=== PATIENT | female | born 1940 | race Caucasian/White ===

== ENCOUNTER 2019-03-31 03:39 | Observation (INO) | payer MEDICARE, OTHER ==
[~2019-03-31] VITALS: Ht 152.4 cm; Wt 54.2 kg
[2019-03-31] MEDS ORDERED: PROPOFOL 10 MG/ML, 20ML ONE (04:17)
--- NOTE | 2019-03-31 04:30 | NUR ---
SEE PROCEDURAL SEDATION SHEET.
[2019-03-31] MEDS ORDERED: MORPHINE SULFATE 4 MG/ML, 1ML ONE (04:56)
[2019-03-31] MEDS ORDERED: MORPHINE SULFATE 4 MG/ML, 1ML IVPush ONE (05:00)
--- NOTE | 2019-03-31 05:20 | NUR ---
PT TOLERATED PROCEDURE WELL BUT RIGHT HIP REMAINS OUT OF PLACE. ORTHO HAS BEEN CALLED PT WITH VSS.
[2019-03-31 05:48] LABS: BASOPHILS # (AUTO) 0.02 x10^3/uL (0-0.1); BASOPHILS % (AUTO) 0 % (0-1); EOSINOPHILS # (AUTO) 0.23 x10^3/uL (0-0.4); EOSINOPHILS % (AUTO) 4 % (1-7); LYMPHOCYTES # (AUTO) 0.99 x10^3/uL (1-3.4); LYMPHOCYTES % (AUTO) 16 % (22-44); MD NO; MEAN CORPUSCULAR HEMOGLOBIN 30.5 pg (27.0-34.8); MEAN CORPUSCULAR HGB CONC 32.5 g/dL (32.4-35.8); MEAN PLATELET VOLUME 9.1 fL (7.4-10.4); MONOCYTES # (AUTO) 0.54 x10^3/uL (0.2-0.8); MONOCYTES % (AUTO) 9 % (2-9); NEUTROPHILS # (AUTO) 4.44 x10^3/uL (1.8-6.8); NEUTROPHILS % (AUTO) 71 % (42-75); PLATELET COUNT 195 x10^3/uL (130-400); RED BLOOD COUNT 4.81 x10^6/uL (3.82-5.3); RED CELL DISTRIBUTION WIDTH 14.8 % (9.6-15.2)
[2019-03-31 05:57] LABS: ALBUMIN 2.9 g/dL (3.4-5.0); ANION GAP 6 mmol/L (5-15); CHLORIDE 113 mmol/L (98-107)
[2019-03-31] MEDS ORDERED: MORPHINE SULFATE 4 MG/ML, 1ML IVPush PRN (06:00)
[2019-03-31] MEDS ORDERED: ONDANSETRON 2MG/ML, 2ML IVPush PRN (06:00)
[2019-03-31] MEDS ORDERED: SODIUM CHLORIDE 0.9% 1,000 ML IV SCH (06:00)
--- NOTE | 2019-03-31 06:03 | NUR ---
PUREWICK PLACED AND PT INCOURAGED TO URINATE. BUT DUE TO ALOC PT NOT WILLING TO PEE AT THIS TIME.
[2019-03-31 06:07] LABS: ALANINE AMINOTRANSFERASE 20 U/L (12-78); ALKALINE PHOSPHATASE 71 U/L (45-117); BILIRUBIN,TOTAL 1.1 mg/dL (0.2-1.0); CALCIUM 7.8 mg/dL (8.5-10.1); CREATININE 0.75 mg/dL (0.55-1.02); TOTAL PROTEIN 6.3 g/dL (6.4-8.2)
--- NOTE | 2019-03-31 06:26 | NUR ---
REPORT CALLED PT READY TO GO.
[2019-03-31 06:44] VITALS: BP 132/75
[2019-03-31] MEDS ORDERED: PROPOFOL 50 ML ONE (10:49)
[2019-03-31] MEDS ORDERED: ONDANSETRON ODT 8 MG PO PRN (11:30)
[2019-03-31] MEDS ORDERED: EPHEDRINE 50 MG/ML, 1ML IVPush PRN (11:30)
[2019-03-31] MEDS ORDERED: ACETAMINOPHEN 325 MG TABLET PO PRN (11:30)
[2019-03-31] MEDS ORDERED: OXYcodone 5 MG/5 ML ORAL.SOL UDC PO PRN (11:30)
[2019-03-31] MEDS ORDERED: FENTANYL PF 100 MCG/2ML IV PRN (11:30)
[2019-03-31] MEDS ORDERED: EPHEDRINE 50 MG/ML, 1ML IM PRN (11:30)
[2019-03-31] MEDS ORDERED: ONDANSETRON 2MG/ML, 2ML IV PRN (11:30)
[2019-03-31] MEDS ORDERED: MIDAZOLAM 1 MG/ML, 2ML IV PRN (11:30)
[2019-03-31 12:40] VITALS: BP 129/76
[2019-03-31 20:51] VITALS: BP 135/59
[2019-04-01 00:35] VITALS: BP 158/69
[2019-04-01 05:10] VITALS: BP 143/79
[2019-04-01 07:52] VITALS: BP 149/65
[2019-04-01 14:45] VITALS: BP 126/77
== END 2019-04-01 15:45 | disposition home or self-care (01) ==
LOC: ED 06:30 → 4NE 06:55 → INTOOBSV 06:55
PROVIDERS: ADMIT Orthopaedic Surgery; ATTEND Orthopaedic Surgery
DX: T84.020A Dislocation of internal right hip prosthesis, initial encounter (principal); S79.911A Unspecified injury of right hip, initial encounter; I10 Essential (primary) hypertension; F03.90 Unspecified dementia, unspecified severity, without behavioral disturbance, psychotic disturbance, mood disturbance, and anxiety; E78.00 Pure hypercholesterolemia, unspecified; W01.0XXA Fall on same level from slipping, tripping and stumbling without subsequent striking against object, initial encounter; Y93.89 Activity, other specified; Y92.89 Other specified places as the place of occurrence of the external cause
CPT/HCPCS: 27250; 36415; 72170; 73501; 76000; 80053; 85025; 93005; 96374; 96376; 97162; 99152; 99284; G0378; J2270; J2704; J7030

== ENCOUNTER 2019-11-15 08:42 | Observation (INO) | payer MEDICARE, OTHER ==
[~2019-11-15] VITALS: Ht 152.4 cm; Wt 75.0 kg
[2019-11-15] MEDS ORDERED: SODIUM CHLORIDE FLUSH 10ML SYR IVF ONE (09:00)
[2019-11-15] MEDS ORDERED: PLEASE ENTER HEIGHT AND WEIGHT MC SCH (09:00)
[2019-11-15] MEDS ORDERED: FURO20TA3 PO (09:02)
[2019-11-15] MEDS ORDERED: SPIR50TA4 PO (09:03)
[2019-11-15] MEDS ORDERED: SIMV10TA18 PO (09:03)
--- NOTE | 2019-11-15 09:07 | NUR ---
PATIENT BIB [facility] AFTER HAVING A FALL AT HOME AND SPOUSE WAS UNABLE TO GET PATIENT UP OFF THE FLOOR. PATIENT INJURED RIGHT HIP AND KNEE, AND HAS HX OF RIGHT HIP SURGERY. PATIENT GIVEN 200 [address] E[place]TE TO THE HOSPITAL, WITH SOME PAIN RELIEF. SPOUSE AT BEDSIDE. PATIENT IS A&OX3, SHE CANNOT REMEMBER WHY SHE IS AT THE HOSPITAL. PATIENT ON 2 LPM NC. PATIENT DENIES PAIN AT THIS TIME.
--- NOTE | 2019-11-15 09:08 | NUR ---
PATIENT TO XRAY.
[2019-11-15] MEDS ORDERED: PROPOFOL 10 MG/ML, 20ML ONE (09:55)
[2019-11-15] MEDS ORDERED: KETAMINE 10 MG/ML, 20ML ONE (09:55)
[2019-11-15] MEDS ORDERED: PROPOFOL 10 MG/ML, 20ML IVPush ONE (10:00)
[2019-11-15] MEDS ORDERED: KETAMINE 10 MG/ML, 20ML IV ONE (10:00)
--- NOTE | 2019-11-15 10:08 | NUR ---
PT MOVED TO TRAUMA ROOM 2 FOR CLOSED REDUCTION OF RIGHT HIP. IS WAITING IN THE CAFE. EDUCATION PROVIDED, AND CONSENTS SIGNED. MONITORING IN PLACE FOR PROCEDURAL SEDATION. PLEASE REFER TO PAPER CHARTING FOR SEDATION MONITORING AND PROGRESS. MYSELF AND KASSIDY (RN) WILL BE ASSISTING WITH REDUCTION/SEDATION.
--- NOTE | 2019-11-15 10:43 | NUR ---
unsuccessful reduction of right hip. pt tolerated sedation well. please refer to paper charts for vs and sedation scale.
--- NOTE | 2019-11-15 11:30 | NUR ---
Patient is resting comfortably in rtorrance, vital signs within normal limits. No further needs at this time.
--- NOTE | 2019-11-15 12:45 | NUR ---
PT AND ARE AWAITING O.R. TO CALL FOR PROCEDURE. HER PAIN IS WELL CONTROLLED AND VS ARE WDL. WE WILL CONTINUE TO MONITOR AND TREAT ORDERED, WELL PRN WHILE AWAITING TRANSPORT TO THE O.R.
--- NOTE | 2019-11-15 12:57 | NUR ---
SBAR GIVEN TO DIANA GELLER IN THE OR.
--- NOTE | 2019-11-15 13:10 | NUR ---
PATIENT TAKEN TO OR ON GURNEY BY TECH, AND BEDSIDE.
[2019-11-15 15:07] VITALS: BP 131/66
== END 2019-11-15 17:46 | disposition home or self-care (01) ==
LOC: ED 09:19 → EDIP 10:54 → 4NE 15:09
PROVIDERS: ADMIT Orthopaedic Surgery; ATTEND Orthopaedic Surgery
DX: Z03.818 Encounter for observation for suspected exposure to other biological agents ruled out (principal); T84.020A Dislocation of internal right hip prosthesis, initial encounter; M24.451 Recurrent dislocation, right hip; I10 Essential (primary) hypertension; G30.9 Alzheimer's disease, unspecified; F02.80 Dementia in other diseases classified elsewhere, unspecified severity, without behavioral disturbance, psychotic disturbance, mood disturbance, and anxiety; E78.00 Pure hypercholesterolemia, unspecified; W01.0XXA Fall on same level from slipping, tripping and stumbling without subsequent striking against object, initial encounter; Y93.89 Activity, other specified; Y92.099 Unspecified place in other non-institutional residence as the place of occurrence of the external cause; Y79.2 Prosthetic and other implants, materials and accessory orthopedic devices associated with adverse incidents; Z96.652 Presence of left artificial knee joint; Z96.641 Presence of right artificial hip joint
CPT/HCPCS: 27266; 72170; 73502; 73560; 87635; 99284; G0378; J2704; 96374; 96375